=== PATIENT | male | born 1995 | race Caucasian/White ===

== ENCOUNTER 2018-11-12 09:46 | Emergency (ER) | payer BC ==
--- NOTE | 2018-11-12 11:06 | EDPHY ---
General - History Smoking Status: Never smoked Time Seen by Provider: 11/12/18 10:50 Narrative: CLINICAL IMPRESSION: Left triquetral fracture ASSESSMENT/PLAN: Patient is a 23-year-old male with no significant medical history who presents with complaint of left wrist pain after sustaining a mechanical fall yesterday. Patient is nontoxic-appearing, he is in no acute distress on arrival. Wrist x- rays reveals acute mildly displaced triquetral fracture fracture of the left wrist. There was no evidence of open fracture, dislocation, compartment syndrome , cellulitis, septic arthritis or neurovascular compromise. His history and physical examination is most consistent with acute left triquetral fracture. The patient was placed in a ulnar gutter splint, CMS intact post splint placement. He will otherwise continue Tylenol and ibuprofen, given small amount of Wayan for severe pain. Orthopedic referral provided. Return precautions discussed-patient to return to the emergency Department for significantly worsening or uncontrolled pain, significant swelling, numbness or tingling of the extremity, paleness or coolness of her digits, fever or for any other concerning symptom. The patient verbalizes understanding and he is in agreement with this plan. DIFFERENTIAL DX: Includes but not limited to fracture, dislocation, sprain, contusion ED PROCEDURES: Procedure: Splint placement. A ulnar gutter splint was applied. After application of the splint I returned and re-examined the patient. The splint was adequately immobilizing the joint and distal to the splint the patient's circulation and sensation was intact. ED COURSE: 1100: Discussed with Dr. Hill CHIEF COMPLAINT: Left wrist pain HPI: Patient is a 23-year-old male who presents to the emergency department with left wrist pain after sustaining a mechanical fall yesterday. Patient reports he slipped on the ice, fell onto his left wrist inside. He experienced pain mostly on the outer portion of his wrist, it has been increasing in intensity and he feels that his range of motion is decreased. Patient denies any numbness or tingling of the hand or digits. He denies the elbow pain. He did not hit his head, there was no loss of consciousness. He denies any other injury or complaint. PAST MEDICAL HISTORY: Denies Family History: Noncontributory Social History: Denies smoking or illicit drug use ROS: A full 10 point review of systems was negative except for those mentioned in HPI. PHYSICAL EXAM: General Appearance: Alert, oriented, appropriate, cooperative, NAD, well hydrated, non-toxic appearing, VSS, no hypoxia. HEENT: TMs are clear bilaterally no perforation or FB, no injection, no evidence of serous or mucopurulent otitis. Oropharynx clear is no erythema or exudates, no tonsillar hypertrophy or asymmetry. Dentition without abnormality. Eyes: PERRLA, no acute vision change, nystagmus, swelling, discharge, pain or photosensitivity. Conjunctiva pink, no pallor or injection Neck: Supple, nontender, no lymphadenopathy, no midline pain, FROM, no meningismus. Respiratory: There are no retractions, lungs are clear to auscultation. Cardiac: Regular rate and rhythm, no murmurs or gallops. Gastrointestinal: Abdomen is soft, nontender, bowel sounds normal, no masses/ hernia, no rigidity, guarding or focal peritoneal findings. Skin: Warm, dry, no rashes, no nodules on palpation. Upper Extremities: Right upper extremity is unremarkable- full ROM and nontender. Left upper extremity with tenderness to palpation along the dorsal aspect of the wrist, ulnar aspect and distal forearm. Patient with limited range of motion secondary to pain. No appreciable hand tenderness to palpation. There is mild overlying edema on the dorsal aspect of the wrist. Radial pulses 2+ Left elbow nontender, able to supinate and pronate without difficulty. No radial head tenderness, The radial, ulnar and median nerves were all tested. Radial nerve: Patient is able to extend wrist and fingers of the local joints. Ulnar nerve: Patient is able to abduct all fingers. Median nerve patient is able to oppose thumb to pinky. Lower Extremities: Intact distal pulses, No edema, No tenderness, No cyanosis, full range of motion intact, No calf tenderness bilaterally. MEDICAL DECISION MAKING: Patient was seen independently. Secondary supervising physician at time of evaluation was Dr. Hill, he did not evaluate this patient. Diagnosis: Left wrist pain, acute triquetral fracture. New, requires workup Summary: See Assessment and Plan for summary of ED visit Clinical lab tests: Not applicable. Independent visualization of images, tracing, or specimens: Yes. Decision to obtain medical records or history from someone other than the patient: No Review / Summarize previous medical records: No Discussed patient with another provider: Yes, Dr. Hill Patient Progress: Stable, discharged. (Sue Serna) Medical Decision Making: I did not see this patient while he was in the emergency department. However his care was discussed with the PA while the patient was in the department. I agree with treatment plan and management (Jaguar Hill) - Objective Vital Signs: Initial Vital Signs Temperature (C) 37.2 C 11/12/18 10:02 Heart Rate 74 11/12/18 10:02 Respiratory Rate 18 11/12/18 10:02 Blood Pressure 117/60 11/12/18 10:02 O2 Sat (%) 97 11/12/18 10:02 O2 Delivery Mode Room Air Allergies/Adverse Reactions: No Known Allergies Allergy (Unverified 11/12/18 10:01) Home Medications: Medication Instructions Recorded Hydrocodone/APAP 5/325 [Wayan 1 - 2 tab PO Q4H PRN #10 tab 11/12/18 5/325 (*)] Medications Given: Discontinued Medications Ibuprofen (Motrin) 600 mg PO EDNOW ONE Stop: 11/12/18 11:22 Last Admin: 11/12/18 11:56 Dose: 600 mg Departure - Departure Disposition: Home, Routine, Self-Care Clinical Impression: Triquetral fracture Condition: Good Instructions: Wrist Fracture in Adults (ED) Additional Instructions: DISCHARGE INSTRUCTIONS FROM YOUR DOCTOR Thank you for visiting our emergency department today. Please keep in mind that discharge from the emergency department does not mean that there is nothing wrong - it simply means that we have not identified an emergency condition that requires further evaluation or treatment in the hospital. You should always plan to follow up with primary care for re-evaluation of your condition in the next 2-3 days. If you have been referred to a specialist, please call as soon as possible ( today or tomorrow) to schedule your follow up appointment at the appropriate time. Rest, ice (on and off), elevate the wrist and hand as possible above the level of the heart to decrease pain and swelling. Wear the splint as applied. Do not remove splint and do not get it wet. For pain, Ibuprofen 400 mg every 6 hours. Do not exceed 2400 mg of ibuprofen in 24 hours. You have been prescribed Wayan which is a narcotic. Please do not drive or operate machinery while taking this medication as it may make you drowsy. It may also be habit forming. This medication can also cause constipation, recommend taking 100 mg of Colace twice daily while taking this medication. This medication also contains Tylenol, please do not take other Tylenol containing products with this medication. Continue your regular medications as prescribed. Return for increased pain or swelling, numbness, tingling or weakness of the fingers, discoloration of the fingers, fever,inability to move your fingers or any other new, worsening or worrisome symptoms. People present with illnesses and injuries in different ways, and it is always possible that we have missed something. You may always return for re-evaluation if symptoms worsen or if they are not improving or if you develop new/different symptoms. Again, thank you for choosing our emergency department. We hope that you feel better. Referrals: NONE *PRIMARY CARE P,. [Primary Care Provider] - As per Instructions Raciel Campbell MD [Medical Doctor] - 2-3 days, call for appt. (Please follow-up with Orthopedics) Stand Alone Forms: Work Limited Duty, Work Excuse Prescriptions: Hydrocodone/APAP 5/325 [Wayan 5/325 (*)] 1 - 2 tab PO Q4H PRN #10 tab PRN Reason: Pain, Moderate
[2018-11-12] MEDS ORDERED: IBUPROFEN 600 MG TAB PO ONE (11:21)
[2018-11-12 12:08] VITALS: BP 119/85
== END 2018-11-12 12:08 | disposition home or self-care (01) ==
PROC: 2W3DX1Z Immobilization of Left Lower Arm using Splint (ICD-10-PCS; principal; 2018-11-12)
DX: S62.112A Displaced fracture of triquetrum [cuneiform] bone, left wrist, initial encounter for closed fracture (principal); W00.0XXA Fall on same level due to ice and snow, initial encounter; Y92.9 Unspecified place or not applicable; Y99.9 Unspecified external cause status; Y93.9 Activity, unspecified